=== PATIENT | male | born 1990 | race Native Hawaiian/Other Pacific Islander ===

== ENCOUNTER 2019-06-08 15:08 | Outpatient (CLI) | payer OTHER ==
--- NOTE | 2019-06-09 14:33 | XRAY Report ---
Reason: HYPERFLEXION INJURY MID MAY 2019 WHILE SKIING Procedure Date: 06/08/2019 Accession Number: [id number] / [id number] Procedure: XR - Knee 3 View RT CPT Code: Final Report FULL RESULT: EXAM: RIGHT KNEE RADIOGRAPHY EXAM DATE: 06/08/2019 03:23 PM. CLINICAL HISTORY: Hyperflexion injury mid may 2019 while skiing. COMPARISON: None. TECHNIQUE: 3 views. FINDINGS: Bones: No fracture or bone destructive process. Joints: No subluxation. Joint spaces are preserved. No joint effusion. Soft Tissues: No significant findings identified. IMPRESSION: 1. No bony or articular abnormality identified. RADIA
== END 2019-06-08 15:09 | disposition home or self-care (01) ==
LOC: DI 15:08
PROVIDERS: ATTEND Family Medicine
DX: S89.81XA Other specified injuries of right lower leg, initial encounter (principal)

== ENCOUNTER 2019-08-06 17:10 | Outpatient (CLI) | payer OTHER | END 2019-08-06 17:11 | disposition home or self-care (01) | LOC: COV 17:10 | PROVIDERS: ATTEND Family Medicine | DX: R05 Cough (principal) ==

== ENCOUNTER 2019-11-19 08:00 | Outpatient (CLI) | payer OTHER | END 2019-11-19 23:59 | disposition home or self-care (01) | LOC: LAB.R 08:00 | PROVIDERS: ATTEND Family Medicine | DX: Z20.828 Contact with and (suspected) exposure to other viral communicable diseases (principal); B97.89 Other viral agents as the cause of diseases classified elsewhere | CPT/HCPCS: 81599 ==

== ENCOUNTER 2021-07-09 14:03 | Emergency (ER) | payer OTHER ==
--- NOTE | 2021-07-09 14:25 | ED Physician Documentation ---
PD HPI MHE - Stated complaint Stated Complaint: ANXIETY - Chief complaint Chief Complaint: MHE - History obtained from History obtained from: Patient - Additional information Additional information: 30-year-old gentleman presents by private auto for evaluation of anxiety and depression with suicidal ideation. This is been going on for about a year but the last few weeks have been worse. He is seeing counselor which is helpful. He does have suicidal ideation with fleeting plans but does not think he would act on it. He is not on any medical management for depression or anxiety. No substance issues. He had a particularly bad panic attack today necessitating his visit. Review of Systems Ten Systems: 10 systems reviewed and negative Constitutional: denies: Fever, Chills Eyes: reports: Reviewed and negative Ears: reports: Reviewed and negative Nose: reports: Reviewed and negative Throat: reports: Reviewed and negative Cardiac: reports: Reviewed and negative Respiratory: reports: Reviewed and negative PD PAST MEDICAL HISTORY - Allergies Allergies/Adverse Reactions: Allergies Allergy/AdvReac Type Severity Reaction Status Date / Time No Known Drug Allergies Allergy Verified 07/09/21 14:13 PD ED PE NORMAL - Vitals Vital signs reviewed: Yes - General General: Alert and oriented X 3, Other (Slightly fast speech and anxious but overall normal affect and an excellent historian. Well-groomed.) - HEENT HEENT: PERRL, EOMI - Neck Neck: Supple, no meningeal sign, No bony TTP - Cardiac Cardiac: RRR, No murmur - Respiratory Respiratory: No respiratory distress, Clear bilaterally - Abdomen Abdomen: Normal bowel sounds, Soft, Non tender - Back Back: No CVA TTP, No spinal TTP - Derm Derm: Normal color, Warm and dry - Extremities Extremities: No edema, No calf tenderness / cord - Neuro Neuro: Alert and oriented X 3 Eye Opening: Spontaneous Motor: Obeys Commands Verbal: Oriented GCS Score: 15 Results - Vitals Vitals: Vital Signs - 24 hr 07/09/21 07/09/21 07/09/21 14:07 14:17 16:05 Temperature 36.3 C L 36.5 C Heart Rate 67 67 67 Respiratory 16 16 16 Rate Blood Pressure 136/70 H 136/70 H 126/84 H O2 Saturation 97 97 98 07/09/21 07/09/21 07/09/21 16:10 16:22 16:50 Temperature Heart Rate 62 77 75 Respiratory 16 20 18 Rate Blood Pressure 126/82 H 133/82 H 124/79 O2 Saturation 99 99 99 Oxygen O2 Source Room air PD MEDICAL DECISION MAKING - ED course ED course: 30-year-old gentleman with depression anxiety, seen by social work and contracts for safety, feeling much better after ketamine infusion with no persistent suicidal ideation or anxiety. Departure - Departure Disposition: Home, Self Care Clinical Impression: Depression, Anxiety Condition: Good Record reviewed to determine appropriate education?: Yes Instructions: ED Depression Comments: You were seen today for anxiety and depression, you have the resources from the social insurance analyst and use those tomorrow. You also received an infusion of ketamine, 30 mg over 40 minutes which seems to have been helpful. Return for new or worsening symptoms or if your depression or anxiety worsen.
[2021-07-09] MEDS ORDERED: KETAMINE 30 MG in SODIUM CHLORIDE 0.9% 100ML 100 ML IV STA (15:28)
[2021-07-09] MEDS ORDERED: MIDAZOLAM 2 MG/2 ML VIAL IVP STA (15:28)
[2021-07-09 17:05] VITALS: BP 133/70
== END 2021-07-09 17:05 | disposition home or self-care (01) ==
LOC: ED 14:03
DX: F32.A Depression, unspecified (principal); F41.9 Anxiety disorder, unspecified
CPT/HCPCS: 96365; 96375; 99283

== ENCOUNTER 2021-10-06 18:08 | Emergency (ER) | payer OTHER ==
[2021-10-06 18:37] LABS: MUDS CUTOFF CONCENTRATIONS CUTOFF CONC BELOW:
[2021-10-06 18:43] LABS: BILIRUBIN,URINE NEGATIVE (NEGATIVE); GLUCOSE, URINE (UA) NEGATIVE (NEGATIVE); KETONES,URINE (UA) NEGATIVE (NEGATIVE); LEUKOCYTE ESTERASE, URINE NEGATIVE (NEGATIVE); NITRITE,URINE NEGATIVE (NEGATIVE); OCCULT BLOOD,URINE NEGATIVE (NEGATIVE); PH,URINE 6.5 PH (5.0-7.5); PROTEIN,URINE NEGATIVE (NEGATIVE); UROBILINOGEN,URINE 0.2 (NORMAL) E.U./dL (NORMAL)
[2021-10-06 18:47] LABS: CLARITY,URINE CLEAR (CLEAR)
[2021-10-06 18:48] LABS: BASOPHILS # (AUTO) 0.1 10^3/uL (0.0-0.1); BASOPHILS % (AUTO) 0.7 %; EOSINOPHILS # (AUTO) 0.1 10^3/uL (0.0-0.7); EOSINOPHILS % (AUTO) 1.7 %; HCT - HEMATOCRIT 44.6 % (42.0-52.0); HGB - HEMOGLOBIN 15.3 g/dL (14.0-18.0); LYMPHOCYTES # (AUTO) 1.8 10^3/uL (1.5-3.5); LYMPHOCYTES % (AUTO) 21.6 %; MEAN CORPUSCULAR HEMOGLOBIN 29.8 pg (27.0-31.0); MEAN CORPUSCULAR HGB CONC 34.3 g/dL (32.0-36.0); MEAN CORPUSCULAR VOLUME 86.9 fL (80.0-94.0); MEAN PLATELET VOLUME 9.2 fL (7.4-11.4); MONOCYTES # (AUTO) 0.7 10^3/uL (0.0-1.0); MONOCYTES % (AUTO) 8.1 %; NEUTROPHILS # (AUTO) 5.6 10^3/uL (1.5-6.6); NEUTROPHILS % (AUTO) 67.8 %; PLT - PLATELET COUNT 271 10^3/uL (130-450); RED BLOOD COUNT 5.13 10^6/uL (4.70-6.10); RED CELL DISTRIBUTION WIDTH 12.7 % (12.0-15.0); WHITE BLOOD COUNT 8.3 x10^3/uL (4.8-10.8)
[2021-10-06 18:59] LABS: AMPHETAMINE SCREEN,URINE NEGATIVE (NEGATIVE); BARBITURATE SCREEN,UR NEGATIVE (NEGATIVE); BENZODIAZEPINES SCREEN, URINE NEGATIVE (NEGATIVE); COCAINE SCREEN URINE NEGATIVE (NEGATIVE); METHADONE SCREEN, URINE NEGATIVE (NEGATIVE); METHAMPHETAMINES SCREEN, URINE NEGATIVE (NEGATIVE); OPIATE SCREEN, URINE NEGATIVE (NEGATIVE); OXYCODONE SCREEN, URINE NEGATIVE (NEGATIVE); THC CANNABINOID SCREEN, URINE NEGATIVE (NEGATIVE); TRICYCLIC ANTIDEPRESSANT,URINE NEGATIVE (NEGATIVE)
[2021-10-06 19:00] LABS: PROPOXYPHENE SCREEN, URINE NEGATIVE (NEGATIVE)
--- NOTE | 2021-10-06 19:04 | ED Physician Documentation ---
PD HPI MHE - Stated complaint Stated Complaint: ANXIETY - Chief complaint Chief Complaint: MHE - History obtained from History obtained from: Patient - History of Present Illness Primary symptom: Self harm - cut, Anxiety Pain level max: 0 Pain level now: 0 - Additional information Additional information: Patient is a 31-year-old male who brought himself to the emergency department for increasing anxiety and feeling "out of control". He states he cut himself on the thigh today. He states he is not suicidal or homicidal. He states that he would like to be hospitalized for psychiatric care. He used to have a therapist but states it was not helping so stopped going several months ago. He states increasing stress at home. He is requesting voluntary placement Review of Systems Ten Systems: 10 systems reviewed and negative Constitutional: denies: Fever, Chills Ears: denies: Ear pain Nose: denies: Rhinorrhea / runny nose, Congestion Respiratory: denies: Cough GI: denies: Abdominal Pain, Nausea, Vomiting, Diarrhea Skin: denies: Rash Musculoskeletal: denies: Neck pain, Back pain Neurologic: denies: Headache PD PAST MEDICAL HISTORY - Past Medical History Past Medical History: No - Past Surgical History Past Surgical History: No - Present Medications Home Medications: Ambulatory Orders Medication Instructions Recorded Confirmed Colchicine 0.6 mg PO DAILY PRN 10/06/21 10/06/21 Sertraline [Zoloft] 100 mg PO DAILY 10/06/21 10/06/21 - Allergies Allergies/Adverse Reactions: Allergies Allergy/AdvReac Type Severity Reaction Status Date / Time No Known Drug Allergies Allergy Verified 10/06/21 18:22 - Living Situation Living Arrangement: reports: At home - Social History Does the pt have substance abuse?: No - Family History Family history: reports: Non contributory PD ED PE NORMAL - Vitals Vital signs reviewed: Yes - General General: Alert and oriented X 3, No acute distress, Well developed/nourished - HEENT HEENT: PERRL, Moist mucous membranes - Neck Neck: Supple, no meningeal sign - Cardiac Cardiac: RRR, Strong equal pulses - Respiratory Respiratory: No respiratory distress, Clear bilaterally - Abdomen Abdomen: Soft, Non tender, Non distended - Derm Derm: Warm and dry - Extremities Extremities: No edema, Other (Superficial abrasion to the right thigh) - Neuro Neuro: Alert and oriented X 3 - Psych Psych: Normal mood, Normal affect Results - Vitals Vitals: Vital Signs - 24 hr 10/06/21 10/06/21 18:16 18:22 Temperature 36.5 C 36.5 C Heart Rate 73 73 Respiratory 18 18 Rate Blood Pressure 149/100 H 149/100 H O2 Saturation 99 99 Oxygen O2 Source Room air - Labs Labs: Laboratory Tests 10/06/21 10/06/21 10/06/21 18:30 18:33 18:42 WBC 8.3 RBC 5.13 Hgb 15.3 Hct 44.6 MCV 86.9 MCH 29.8 MCHC 34.3 RDW 12.7 Plt Count 271 MPV 9.2 Neut # (Auto) 5.6 Lymph # (Auto) 1.8 Mccormick # (Auto) 0.7 Eos # (Auto) 0.1 Baso # (Auto) 0.1 Absolute Nucleated RBC 0.00 Nucleated RBC % 0.0 Sodium Potassium Chloride Carbon Dioxide Anion Gap BUN Creatinine Estimated GFR (MDRD) Glucose Calcium Total Bilirubin AST ALT Alkaline Phosphatase Total Protein Albumin Globulin Albumin/Globulin Ratio Lipase TSH Urine Color YELLOW Urine Clarity CLEAR Urine pH 6.5 Ur Specific [place] <=1.005 Urine Protein NEGATIVE Urine Glucose (UA) NEGATIVE Urine Ketones NEGATIVE Urine Occult Blood NEGATIVE Urine Nitrite NEGATIVE Urine Bilirubin NEGATIVE Urine Urobilinogen 0.2 (NORMAL) Ur Leukocyte Esterase NEGATIVE Ur Microscopic Review NOT INDICATED Urine Culture Comments NOT INDICATED Salicylates Urine Opiates Screen NEGATIVE Ur Oxycodone Screen NEGATIVE Urine Methadone Screen NEGATIVE Ur Propoxyphene Screen NEGATIVE Acetaminophen Ur Barbiturates Screen NEGATIVE Ur Tricyclics Screen NEGATIVE Ur Phencyclidine Scrn NEGATIVE Ur Amphetamine Screen NEGATIVE U Methamphetamines Scrn NEGATIVE U Benzodiazepines Scrn NEGATIVE Urine Cocaine Screen NEGATIVE U Cannabinoids Screen NEGATIVE Ethyl Alcohol SARS-CoV-2 (PCR) NOT DETECTED 10/06/21 10/06/21 18:42 18:42 WBC RBC Hgb Hct MCV MCH MCHC RDW Plt Count MPV Neut # (Auto) Lymph # (Auto) Mccormick # (Auto) Eos # (Auto) Baso # (Auto) Absolute Nucleated RBC Nucleated RBC % Sodium 139 Potassium 3.9 Chloride 103 Carbon Dioxide 27 Anion Gap 9.0 BUN 11 Creatinine 0.9 Estimated GFR (MDRD) 100 Glucose 81 Calcium 9.7 Total Bilirubin 0.6 AST 42 ALT 24 Alkaline Phosphatase 53 Total Protein 7.9 Albumin 4.9 Globulin 3.0 Albumin/Globulin Ratio 1.6 Lipase 83 H TSH 0.49 Urine Color Urine Clarity Urine pH Ur Specific [place] Urine Protein Urine Glucose (UA) Urine Ketones Urine Occult Blood Urine Nitrite Urine Bilirubin Urine Urobilinogen Ur Leukocyte Esterase Ur Microscopic Review Urine Culture Comments Salicylates < 6.0 Urine Opiates Screen Ur Oxycodone Screen Urine Methadone Screen Ur Propoxyphene Screen Acetaminophen < 10 L Ur Barbiturates Screen Ur Tricyclics Screen Ur Phencyclidine Scrn Ur Amphetamine Screen U Methamphetamines Scrn U Benzodiazepines Scrn Urine Cocaine Screen U Cannabinoids Screen Ethyl Alcohol < 5.0 SARS-CoV-2 (PCR) PD MEDICAL DECISION MAKING - ED course Complexity details: reviewed results, re-evaluated patient, considered differential, d/w patient, d/w family, d/w admissions consultant ED course: 31-year-old male here seeking voluntary psychiatric care. Telepsychiatry was consulted, Dr. Ware. Recommends voluntary care. Also recommend Zoloft 150 mg p.o. daily along with hydroxyzine 50 mg p.o. 3 times daily as needed.Patient signed out [facility] emergency department physician for ongoing care. Departure - Departure Clinical Impression: Anxiety MDD (major depressive disorder) Qualifiers: Major depression recurrence: unspecified whether recurrent Active/Remission status: currently active Major depression episode severity: unspecified Qualified Code(s): F32.9 - Major depressive disorder, single episode, unspecified Condition: Stable
[2021-10-06 19:08] LABS: ACETAMINOPHEN < 10 ug/mL (10-30); ALBUMIN 4.9 g/dL (3.2-5.5); ALBUMIN/GLOBULIN RATIO 1.6 (1.0-2.2); ALKALINE PHOSPHATASE 53 IU/L (42-121); ALT ALANINE AMINOTRANSFERASE 24 IU/L (10-60); AST ASPARTATE AMINOTRANSFERASE 42 IU/L (10-42); BILIRUBIN,TOTAL 0.6 mg/dL (0.2-1.0); BUN - BLOOD UREA NITROGEN 11 mg/dL (6-20); CALCIUM 9.7 mg/dL (8.5-10.3); CARBON DIOXIDE - CO2 27 mmol/L (21-32); CHLORIDE 103 mmol/L (101-111); CREATININE 0.9 mg/dL (0.6-1.2); ETOH - ETHANOL < 5.0 mg/dL; GFR - MDRD 100 (>89); GLUCOSE 81 mg/dL (70-100); LIPASE 83 U/L (22-51); POTASSIUM 3.9 mmol/L (3.5-5.0); SALICYLATE < 6.0 mg/dL; SODIUM 139 mmol/L (135-145); TOTAL PROTEIN 7.9 g/dL (6.7-8.2)
--- NOTE | 2021-10-06 21:05 | TELEPSYCH PHYS NOTE ---
Telepsych Consultation Note Consult: Name: Warren GambinoOB: 1990 DateandTime: 10/06/2021 11:22:33 PM Location of the patient: [facility] EDLocation of the doctor: [place] Length of consult: 45 min This evaluation was conducted via video telepsychiatry with the assistance of onsite staff Reason for consult: anxiety, outbursts Requested by: Dr. Carlos History of Present Illness: The patient is a 31-year-old male with a history of depression and anxiety who presented to the ER after cutting his thigh due to anxiety. The patient reports that he has history of depression and is prescribed Zoloft hundred milligrams daily but he intermittently takes extra doses to manage his anxiety and depression. The patient denies SI but states that when frustrated overwhelmed, he will cut himself or punch fernández. The patient is afraid that he will escalate and do serious damage to himself. He is only slept for a few hours in the past couple days and feels that he is "[id number]." The patient is requesting inpatient psychiatric care. The psychiatrist recommended increasing the dose of Zoloft and adding Hydroxyzine as a PRN for anxiety. The fianc was happy to hear the Hydroxyzine recommendation and she takes the same medication for anxiety and told the patient how it helps her. The patient and jeronimo are agreeable with the medication recommendations and agree with the psychiatrist that inpatient psychiatric care is appropriate. Collateral Contacted: The patient's fianc was present for the interview Sleep issues?: YesSleep Quantity:6hr total in the past 2 daysSleep Quality: Poor Psychiatric History/Treatment History: Past diagnoses: depression, anxiety Hospitalizations: No Current Treatment:YesMedication management:YesMedications:Therapy:No Suicide Assessment: PSS-3: 1) Over the past 2 weeks have you felt down, depressed or hopeless?Yes 2) Over the past 2 weeks have you had thoughts of killing yourself?No 3) Have you ever in your life attempted to kill yourself?No Within the past 6 months? [employer]-based Safety Assessment: Risk Factors Stressors: See HPI Attempts/Self-injury: YesDescription:no prior suicide attempts, hx of cutting- last episode today Impulsivity:YesDescription: Drug/Alcohol History:YesDescription:Alcohol-drinks a few times a year Trauma History:No Access to firearms:No HI/Violence/Property destruction:YesDescription:"my own property but not people" Legal: No Family Psych History:YesDescription:mother-depression, anxiety. grandfather- depression, cocaine use Family History of suicide:No Protective Factors: Can handle stress well?Yes Synagogue?No External: Social supports/ Therapeutic relationships: YesDescription: Relationship history: enagaged Living situation: lives with cristobal Employment: YesDescription:training professional for [employer] Education: HS grad, some college Responsibility to family/children/work: YesDescription: Future orientation:YesDescription: Health History: Medical History: Gout Medications & Freq: Zoloft 100mg daily, Colchicine 0.6 mg daily prn Allergies: NKDA, Mental Status Exam: Appearance and Attire:Good eye contact Psychomotor agitation:No abnormality Attitude and behavior:Cooperative Speech:No abnormality, Mood:Anxious Affect:Constricted Thought process:Logical Thought content:no SI, no HI, no delusions Perception:no AVH Intel:Average Abstract:Appropriate Language:No abnormality Orientation:Oriented x 4 Sense:Normal Knowledge:Appropriate for education and socioeconomic status Memory:Intact Insight:Appropriate Judgement:Moderate impairment Gait:No abnormality Impression/Risk Assessment: Current Suicide Risk Elevated?Yes Current Violence Risk Elevated?No Issues with ability to care for self?No Summary: The patient is a 31-year-old male with history of depression and a nxiety who presents to the ER with overwhelming anxiety and episodes of self harm. Patient is not feel safe to go home and is requesting inpatient psychiatric care. The patient and fiabimael are both requesting inpatient treatment for stabilization. Inpatient psychiatric care is appropriate. Diagnosis: MDD, recurrent Moderate, Unspecified Anxiety Disorder CPT Codes: 60149 - Psychiatric Diagnostic Evaluation with Medical Services Treatment Plan: Level of Care: voluntary admission Psychiatric Clearance: No Observation level 1:1 needed?: Yes Pharmacological: Start Zoloft 150 mg daily and Hydroxyzine 50 mg PO TID prn anxiety Patient psychotic?No Therapy: Supportive Follow up needed while in the hospital?: YesNumber of times:Follow-up in 1- 2 days Discussed plan with onsite team leader: Yes Who Dr. Terrance Ware MD [facility] List names and roles of persons who participated in consult: Christiano Ware MD. [facility]
[2021-10-07 07:11] VITALS: BP 114/80
[2021-10-07] MEDS ORDERED: SERTRALINE 50 MG TABLET PO SCH ×2 (08:04→08:15)
[2021-10-07] MEDS ORDERED: KETAMINE 25 MG in SODIUM CHLORIDE 0.9% 100ML 100 ML IV STA (11:54)
--- NOTE | 2021-10-07 14:19 | ED Physician Documentation ---
ED Addendum - Addendum Addendum: 10/07/21 14:15 Patient stayed in the emergency department overnight. There are no beds available for voluntary psychiatric patients currently. Social work was consulted and evaluated the patient as well. The patient was given a dose of IV ketamine by Dr. Us. The patient is currently feeling better and request to go home at this time. He created a safety plan with social work. He will return if he worsens. This document was made in part using voice recognition software. While efforts are made to proofread this document, sound alike and grammatical errors may occur. Departure - Departure Disposition: Home, Self Care Clinical Impression: Anxiety Condition: Good Instructions: Anxiety Disorder Follow-Up: Inna Kerns ARNP [Primary Care Provider] - Within 3 Days Comments: Continue your Zoloft at home. Please follow-up with your doctor for further care. Return if you worsen. Crisis Line and is available to talk to someone Follow-up as directed by social work today.
== END 2021-10-07 15:04 | disposition home or self-care (01) ==
LOC: ED 18:08
DX: S71.119A Laceration without foreign body, unspecified thigh, initial encounter (principal); W45.8XXA Other foreign body or object entering through skin, initial encounter; F32.9 Major depressive disorder, single episode, unspecified; Z20.822 Contact with and (suspected) exposure to COVID-19
CPT/HCPCS: 36415; 80053; 80306; 80307; 80320; 80329; 81003; 83690; 84443; 85025; 87635; 96365; 99284; G0425; Q3014; 81001; 87086

== ENCOUNTER 2022-12-14 16:39 | Emergency (ER) | payer OTHER ==
[2022-12-14 17:05] LABS: BASOPHILS # (AUTO) 0.1 10^3/uL (0.0-0.1); BASOPHILS % (AUTO) 0.6 %; EOSINOPHILS # (AUTO) 0.2 10^3/uL (0.0-0.7); EOSINOPHILS % (AUTO) 1.7 %; HCT - HEMATOCRIT 43.9 % (42.0-52.0); HGB - HEMOGLOBIN 14.9 g/dL (14.0-18.0); LYMPHOCYTES # (AUTO) 1.4 10^3/uL (1.5-3.5); LYMPHOCYTES % (AUTO) 12.4 %; MEAN CORPUSCULAR HGB CONC 33.9 g/dL (32.0-36.0); MEAN CORPUSCULAR VOLUME 85.6 fL (80.0-94.0); MONOCYTES # (AUTO) 0.9 10^3/uL (0.0-1.0); MONOCYTES % (AUTO) 7.9 %; NEUTROPHILS # (AUTO) 8.7 10^3/uL (1.5-6.6); NEUTROPHILS % (AUTO) 77.1 %; PLT - PLATELET COUNT 247 10^3/uL (130-450); RED BLOOD COUNT 5.13 10^6/uL (4.70-6.10); RED CELL DISTRIBUTION WIDTH 12.7 % (12.0-15.0); WHITE BLOOD COUNT 11.3 x10^3/uL (4.8-10.8)
[2022-12-14 17:07] LABS: BILIRUBIN,URINE NEGATIVE (NEGATIVE); GLUCOSE, URINE (UA) NEGATIVE (NEGATIVE); KETONES,URINE (UA) NEGATIVE (NEGATIVE); LEUKOCYTE ESTERASE, URINE NEGATIVE (NEGATIVE); NITRITE,URINE NEGATIVE (NEGATIVE); OCCULT BLOOD,URINE TRACE-INTA (NEGATIVE); PROTEIN,URINE NEGATIVE (NEGATIVE); UROBILINOGEN,URINE 0.2 (NORMAL) E.U./dL (NORMAL)
[2022-12-14 17:08] LABS: CLARITY,URINE CLEAR (CLEAR)
[2022-12-14 17:18] LABS: ALBUMIN 4.7 g/dL (3.2-5.5); ALBUMIN/GLOBULIN RATIO 1.5 (1.0-2.2); BILIRUBIN,TOTAL 0.5 mg/dL (0.2-1.0); CALCIUM 9.9 mg/dL (8.5-10.3); POTASSIUM 3.7 mmol/L (3.5-4.5); TOTAL PROTEIN 7.9 g/dL (6.4-8.9)
[2022-12-14 17:49] LABS: RAPID STREP SCREEN Negative (Negative)
--- NOTE | 2022-12-14 18:23 | ED Physician Documentation ---
PD HPI URI - Stated complaint Stated Complaint: FEVER, BODY ACHES - Chief complaint Chief Complaint: Fever - History obtained from History obtained from: Patient - Additional information Additional information: 32-year-old male with no significant past medical history presents for fever and body aches for 1 day. Has taken Tylenol and Motrin at home with some relief of symptoms. Reported back and "kidney" pain. Also endorsing sore throat. Review of Systems Constitutional: reports: Fever, Chills Ears: denies: Loss of hearing, Ear pain, Drainage/discharge Throat: reports: Sore throat. denies: Dental pain / toothache, Oral lesions / sores Skin: denies: Rash, Lesions, Abrasion (s) Musculoskeletal: reports: Back pain. denies: Neck pain, Joint pain, Extremity swelling Neurologic: denies: Generalized weakness, Focal weakness, Syncope PD PAST MEDICAL HISTORY - Past Surgical History Past Surgical History: No - Present Medications Home Medications: Ambulatory Orders Medication Instructions Recorded Confirmed Colchicine 0.6 mg PO DAILY PRN 10/06/21 12/14/22 - Allergies Allergies/Adverse Reactions: Allergies Allergy/AdvReac Type Severity Reaction Status Date / Time No Known Drug Allergies Allergy Verified 10/06/21 18:22 - Social History Does the pt have substance abuse?: No PD ED PE NORMAL - Vitals Vital signs reviewed: Yes - General General: Alert and oriented X 3, No acute distress, Well developed/nourished - HEENT HEENT: Atraumatic, PERRL, EOMI, Other (pharyngeal erythema without edema or exudate) - Neck Neck: Supple, no meningeal sign - Cardiac Cardiac: RRR, Strong equal pulses - Respiratory Respiratory: No respiratory distress, Clear bilaterally - Abdomen Abdomen: Soft, Non tender, Non distended - Back Back: No CVA TTP, No spinal TTP - Derm Derm: Normal color, Warm and dry, No rash - Extremities Extremities: No deformity, No tenderness to palpate, Normal ROM s pain - Neuro Neuro: Alert and oriented X 3, funeral home attendant 2-12 intact, No motor deficit, Normal speech - Psych Psych: Normal mood, Normal affect Results - Vitals Vitals: Oxygen O2 Source Room air - Labs Labs: Microbiology 12/14/22 17:28 Group A Strep Throat Culture - Preliminary Throat CULTURE IN PROGRESS. RESULTS TO FOLLOW. Laboratory Tests 12/14/22 12/14/22 12/14/22 16:59 16:59 17:00 WBC 11.3 H RBC 5.13 Hgb 14.9 Hct 43.9 MCV 85.6 MCH 29.0 MCHC 33.9 RDW 12.7 Plt Count 247 MPV 9.0 Neut # (Auto) 8.7 H Lymph # (Auto) 1.4 L Sullivan # (Auto) 0.9 Eos # (Auto) 0.2 Baso # (Auto) 0.1 Absolute Nucleated RBC 0.00 Nucleated RBC % 0.0 Sodium 137 Potassium 3.7 Chloride 103 Carbon Dioxide 28 Anion Gap 6.0 BUN 12 Creatinine 1.0 Estimated GFR (MDRD) 88 L Glucose 88 Calcium 9.9 Total Bilirubin 0.5 AST 14 ALT 16 Alkaline Phosphatase 58 Total Protein 7.9 Albumin 4.7 Globulin 3.2 Albumin/Globulin Ratio 1.5 Lipase 18 Urine Color YELLOW Urine Clarity CLEAR Urine pH 6.0 Ur Specific [place] 1.010 Urine Protein NEGATIVE Urine Glucose (UA) NEGATIVE Urine Ketones NEGATIVE Urine Occult Blood TRACE-INTA Urine Nitrite NEGATIVE Urine Bilirubin NEGATIVE Urine Urobilinogen 0.2 (NORMAL) Ur Leukocyte Esterase NEGATIVE Ur Microscopic Review NOT INDICATED Urine Culture Comments NOT INDICATED Influenza A (Rapid) Influenza B (Rapid) Group A Strep Rapid 12/14/22 12/14/22 17:28 17:28 WBC RBC Hgb Hct MCV MCH MCHC RDW Plt Count MPV Neut # (Auto) Lymph # (Auto) Sullivan # (Auto) Eos # (Auto) Baso # (Auto) Absolute Nucleated RBC Nucleated RBC % Sodium Potassium Chloride Carbon Dioxide Anion Gap BUN Creatinine Estimated GFR (MDRD) Glucose Calcium Total Bilirubin AST ALT Alkaline Phosphatase Total Protein Albumin Globulin Albumin/Globulin Ratio Lipase Urine Color Urine Clarity Urine pH Ur Specific [place] Urine Protein Urine Glucose (UA) Urine Ketones Urine Occult Blood Urine Nitrite Urine Bilirubin Urine Urobilinogen Ur Leukocyte Esterase Ur Microscopic Review Urine Culture Comments Influenza A (Rapid) Negative Influenza B (Rapid) Negative Group A Strep Rapid Negative PD Medical Decision Making - ED course Complexity details: reviewed results, re-evaluated patient, considered differential, d/w patient, d/w family ED course: Fever and body aches, concerning for viral syndrome. Laboratory work ordered in triage reviewed, unremarkable. Strep and flu swabs negative. Patient counseled on the fact that this is likely viral, supportive measures including Tylenol, Motrin, IV fluids, rest advised with patient. Departure - Departure Disposition: Home, Self Care Clinical Impression: Nonspecific syndrome suggestive of viral illness Condition: Stable Instructions: ED Fever Control, ED Viral Syndrome Forms: PCP List Discharge Date/Time: 12/14/22 18:24
[2022-12-14 18:31] VITALS: BP 128/76
== END 2022-12-14 18:24 | disposition home or self-care (01) ==
LOC: ED 16:39 → SUPCPDRO 16:39 → ED 18:24
DX: R50.9 Fever, unspecified (principal); M79.10 Myalgia, unspecified site; J02.9 Acute pharyngitis, unspecified; M54.9 Dorsalgia, unspecified
CPT/HCPCS: 36415; 80053; 81001; 81003; 83690; 85025; 87070; 87086; 87275; 87276; 87430; 99283

== ENCOUNTER 2023-01-12 22:35 | Outpatient (CLI) | payer OTHER | END 2023-01-12 23:59 | disposition critical access hospital (66) | LOC: EMS 22:35 | DX: S01.81XA Laceration without foreign body of other part of head, initial encounter (principal); R42 Dizziness and giddiness; W10.8XXA Fall (on) (from) other stairs and steps, initial encounter; Y92.009 Unspecified place in unspecified non-institutional (private) residence as the place of occurrence of the external cause | CPT/HCPCS: A0425; A0429 ==

== ENCOUNTER 2023-01-12 22:52 | Emergency (ER) | payer OTHER ==
--- OUTSIDE RECORDS SUMMARY | 2023-01-12 23:18 | EXTERNAL MEDICAL SUMMARY RPT | Continuity of Care Document ---
Author Name Unknown Address [address] [place] [address] Phone Organization [facility] Address [address] [place] [address] Phone Care Team Providers Care Transcription Typist Name Role Phone Hipolito Stack Unavailable Unavailable Allergies and Intolerances date description facility reaction severity (no date) No Known Drug Allergies [facility] (no germán ction) (no severity) Problems date description facility 2022-12-15 00:00 Upper respiratory tract infecti on [facility] 2022-12-15 00:[address] [facility] Results/Labs test date facility value unit notes Social History date description facility 2022-12-15 00:00 Never smoked tobacco (finding) [facility] Vital Signs date measurement value units 2022-12-15 00:00 BMI 23.6 kg/m2 2022-12-15 00:00 BP_diastolic 65 mmHg 2022-12-15 00:00 BP_systolic 132 mmHg 2022-12-15 00:00 heart_rate 99 /min 2022-12-15 00:00 height_metric 177.8 cm 2022-12-15 00:00 height_standard 70 in 2022-12-15 00:00 o2_saturation 97 % 2022-12-15 00:00 respiration_rate 18 /min 2022-12-15 00:00 temperature_metric 36.56 C 2022-12-15 00:00 temperature_standard 97.8 F 2022-12-15 00:00 weight_metric 74.84 kg 2022-12-15 00:00 weight_standard 164.99 lb
--- NOTE | 2023-01-12 23:24 | ED Physician Documentation ---
PD HPI HEAD INJURY - Stated complaint Stated Complaint: FELL, HIT HEAD, FOREHEAD LAC - Chief complaint Chief Complaint: Trauma Hd/Nk - History obtained from History obtained from: Patient - Additional information Additional information: Patient tripped and fell forward at home tonight at approximately 10 PM, struck his face and forehead against his garage door. Patient says he does not know if he lost consciousness, but he says his told him that he had LOC for up to 1 minute. Patient's called 911, patient is brought in by EMS. Patient's chief complaint/concern is forehead laceration. He also notes mild frontal headache, mild posterior neck pain at the base of his neck. Denies ksenia sea/vomiting. He does not take any blood-thinning medications. Review of Systems Eyes: denies: Loss of vision, Decreased vision Skin: reports: Abrasion (s), Laceration (s) Musculoskeletal: reports: Neck pain. denies: Back pain, Extremity pain, Joint pain, Extremity swelling, Joint swelling, Pain with weight bearing Neurologic: reports: Headache, Head injury, LOC. denies: Generalized weakness, Focal weakness, Numbness PD PAST MEDICAL HISTORY - Past Medical History Past Medical History: Yes Other Past Medical History: gout - Past Surgical History Past Surgical History: No General: Appendectomy Ortho: ACL reconstruction - Present Medications Home Medications: Ambulatory Orders Medication Instructions Recorded Confirmed No Known Home Medications 01/12/23 01/12/23 - Allergies Allergies/Adverse Reactions: Allergies Allergy/AdvReac Type Severity Reaction Status Date / Time No Known Drug Allergies Allergy Verified 01/12/23 22:58 - Social History Does the pt smoke?: No Smoking Status: Former smoker Does the pt have substance abuse?: No - Immunizations Immunizations are current?: No Immunizations: TDAP >10years/unknown PD ED PE NORMAL - Vitals Vital signs reviewed: Yes - General General: Alert and oriented X 3, No acute distress, Well developed/nourished - HEENT HEENT: PERRL, EOMI - Neck Neck: No bony TTP - Cardiac Cardiac: RRR, No murmur - Respiratory Respiratory: No respiratory distress, Clear bilaterally - Neuro Neuro: Alert and oriented X 3, rn vascular 2-12 intact, No motor deficit, No sensory deficit, Normal speech Eye Opening: Spontaneous Motor: Obeys Commands Verbal: Oriented GCS Score: 15 PD ED PE EXPANDED - HEENT HEENT Visual: 1 - laceration (3.5 cm length) 2 - bruising, abrasion, tenderness Results - Vitals Vitals: Vital Signs - 24 hr 01/13/23 03:04 Heart Rate 53 L Respiratory 16 Rate Blood Pressure 116/74 O2 Saturation 99 Oxygen O2 Source Room air - Rads (name of study) CTH Relevant Findings:: Prelim report reviewed, See rad report CT cervical spine Relevant Findings:: Prelim report reviewed, See rad report Procedures - Laceration (location) Face Length in cm: 2 (total length of forehead laceration is 3.5 cm as noted in PE, but only 2cm requires repair (1.5cm of lac is superficial)) Wound type: Linear PD Medical Decision Making - ED course Complexity details: reviewed results, re-evaluated patient, considered differential, d/w patient ED course: Patient is not in a cervical collar when I am first evaluating him. In review of systems, he mentions that he is having some neck pain as noted in my HPI. Thus, a cervical collar is placed, and a CT cervical spine will be ordered in addition to the CT head (CT head is being ordered due to head injury combined with reported LOC that was nearly 1 minute in duration). No concerning findings on CTH, CT cervical spine. Forehead laceration repaired as noted above in procedure note. Results d/w patient, return precautions reviewed. Departure - Departure Disposition: 01 Home, Self Care Clinical Impression: Forehead laceration Qualifiers: Encounter type: initial encounter Qualified Code(s): S01.81XA - Laceration without foreign body of other part of head, initial encounter Condition: Good Instructions: ED Laceration Facial Sutr Tape Follow-Up: Inna Kerns ARNP [Primary Care Provider] - Comments: There were no concerning findings/abnormalities on the CT scans of your head and neck. Your forehead laceration was stitched closed using a "running stitch"; an equivalent of 6 single stitches were used. This information is for your primary care provider when they remove the sutures. Contact your primary care provider when the office is next open (presumably tomorrow, Saturday, January 14) to arrange for an appointment for stitch removal. The stitches should be removed in 1 week. If your primary care provider does not have Saturday hours, you can arrange for an appointment for next Saturday (01/21/23). Forms: PCP List Discharge Date/Time: 01/13/23 04:06
--- NOTE | 2023-01-13 01:58 | CT Report ---
PROCEDURE: HEAD WO INDICATIONS: fall, head injury TECHNIQUE: Noncontrast 4.5 mm thick angled axial sections acquired from the foramen magnum to the vertex. For r adiation dose reduction, the following was used: automated exposure control, adjustment of mA and/or kV according to patient size. COMPARISON: None. FINDINGS: Image quality: Excellent. CSF spaces: Basal cisterns are patent. No extra-axial fluid collections. Ventricles are normal in size and shape. Brain: No midline shift. No intracranial masses or hemorrhage. Cottrell-white matter interface is norm al. Skull and face: Frontal scalp soft tissue swelling and hematoma is seen. Calvarium and visualized fa cial bones are intact, without suspicious lesions. Sinuses: Visualized sinuses and mastoids are clear. IMPRESSION: No acute intracranial pathology. Frontal scalp swelling and hematoma. No gross acute skull fracture. Reviewed by: Edward Reilly MD on 01/13/2023 1:57 AM PDT Approved by: Edward Reilly MD on 01/13/2023 1:57 AM PDT Station ID: [id number]
--- NOTE | 2023-01-13 01:59 | CT Report ---
PROCEDURE: CERVICAL SPINE WO INDICATIONS: fall, head injury TECHNIQUE: Noncontrast 3 mm thick sections acquired from the skull base to the T4 level. Sagittal and coronal r eformats were then constructed. For radiation dose reduction, the following was used: automated exp osure control, adjustment of mA and/or kV according to patient size. COMPARISON: None. FINDINGS: Image quality: Excellent. Bones: No fractures or dislocations. Visualized superior ribs are intact. Soft tissues: Prevertebral soft tissues are normal in thickness. No paravertebral hematomas. No ap ical pneumothoraces. IMPRESSION: No acute, displaced fracture or traumatic subluxation. Reviewed by: Edward Franco MD on 01/13/2023 1:58 AM PDT Approved by: Edward Franco MD on 01/13/2023 1:58 AM PDT Station ID: [id number]
[2023-01-13] MEDS ORDERED: LIDOCAINE 1% 2 ML VIAL SUBQ STA (02:09)
[2023-01-13 03:12] VITALS: BP 116/74; O2SAT 99
[2023-01-13] MEDS ORDERED: BACITRACIN ZINC OINT 1 PACKET TOP STA (03:52)
== END 2023-01-13 04:06 | disposition home or self-care (01) ==
LOC: EDUNIT# → ED 22:52
DX: S01.81XA Laceration without foreign body of other part of head, initial encounter (principal); W19.XXXA Unspecified fall, initial encounter; Y92.008 Other place in unspecified non-institutional (private) residence as the place of occurrence of the external cause; Z87.891 Personal history of nicotine dependence
CPT/HCPCS: 12011; 70450; 72125; 99283; 99284; A9270

== ENCOUNTER 2023-06-21 11:58 | Outpatient (CLI) | payer OTHER ==
[2023-06-21 12:29] LABS: HCT - HEMATOCRIT 44.9 % (42.0-52.0); HGB - HEMOGLOBIN 15.2 g/dL (14.0-18.0); MEAN CORPUSCULAR HGB CONC 33.9 g/dL (32.0-36.0); MEAN CORPUSCULAR VOLUME 85.7 fL (80.0-94.0); MEAN PLATELET VOLUME 9.6 fL (7.4-11.4); RED BLOOD COUNT 5.24 10^6/uL (4.70-6.10); RED CELL DISTRIBUTION WIDTH 12.6 % (12.0-15.0)
[2023-06-21 12:50] LABS: CALCIUM 9.9 mg/dL (8.5-10.3); POTASSIUM 4.1 mmol/L (3.5-4.5)
[2023-06-21 12:53] LABS: THYROID STIMULATING HORMONE 0.72 uIU/mL (0.34-5.60)
[2023-06-21 12:57] LABS: FERRITIN 73.5 ng/mL (23.9-336.2)
== END 2023-06-21 11:59 | disposition home or self-care (01) ==
LOC: LAB 11:58
PROVIDERS: ATTEND Family Medicine
DX: R42 Dizziness and giddiness (principal)
CPT/HCPCS: 36415; 80048; 82728; 84443; 85027

== ENCOUNTER 2023-08-13 16:19 | Outpatient (CLI) | payer OTHER | END 2023-08-13 16:20 | disposition home or self-care (01) | LOC: LAB 16:19 | PROVIDERS: ATTEND Family Medicine | DX: Z87.39 Personal history of other diseases of the musculoskeletal system and connective tissue (principal) | CPT/HCPCS: 36415; 84550 ==

== ENCOUNTER 2023-08-26 13:10 | Emergency (ER) | payer OTHER ==
[2023-08-26 15:42] LABS: B. PARAPERTUSSIS- RESP PCR PAN NOT DETECTED; B. PERTUSSIS- RESP PCR PANEL NOT DETECTED; C. PNEUMONIAE- RESP PCR PANEL NOT DETECTED; CORONAVIRUS 229E-RESP PCR NOT DETECTED; CORONAVIRUS HKU1-RESP PCR NOT DETECTED; CORONAVIRUS NL63-RESP PCR NOT DETECTED; CORONAVIRUS OC43-RESP PCR NOT DETECTED; HUMAN METAPNEUMOVIRUS NOT DETECTED; INFLUENZA A- RESP PCR PANEL NOT DETECTED; INFLUENZA B - RESP PCR PANEL NOT DETECTED; M. PNEUMONIAE- RESP PCR PANEL NOT DETECTED; PARAINFLUENZA VIRUS 1 NOT DETECTED; PARAINFLUENZA VIRUS 2 NOT DETECTED; PARAINFLUENZA VIRUS 3 NOT DETECTED; PARAINFLUENZA VIRUS 4 NOT DETECTED; RHINOVIRUS/ENTEROVIRUS NOT DETECTED; RSV- RESP PCR PANEL NOT DETECTED; SARS-CoV-2 -RESP PCR PANEL NOT DETECTED
--- NOTE | 2023-08-26 15:55 | ED Physician Documentation ---
History of Present Illness - Stated complaint Stated Complaint: FEVER/FATIGUE AFTER TICK BITE - Chief complaint Chief Complaint: General - History obtained from History obtained from: Patient - Additonal information Additional information: Patient is a 33-year-old male presenting for evaluation of bodyaches starting today. Patient is concerned as he found a tick on him yesterday that he pulled off. He is unsure of how long the tick was on him. Also states concerned because his has Lyme disease after being bit by a tick that he states was also in their current residence. He denies any recent travel or camping. No fevers. No known sick contacts. No cough or congestion. Review of Systems Constitutional: reports: Myalgias. denies: Fever Nose: denies: Congestion Cardiac: denies: Chest pain / pressure Respiratory: denies: Dyspnea GI: denies: Abdominal Pain : denies: Dysuria Skin: denies: Rash PD PAST MEDICAL HISTORY - Past Medical History Past Medical History: No - Past Surgical History Past Surgical History: No General: Appendectomy Ortho: ACL reconstruction - Present Medications Home Medications: Ambulatory Orders Medication Instructions Recorded Confirmed No Known Home Medications 01/12/23 01/12/23 - Allergies Allergies/Adverse Reactions: Allergies Allergy/AdvReac Type Severity Reaction Status Date / Time No Known Drug Allergies Allergy Verified 08/26/23 13:21 - Social History Does the pt smoke?: No Smoking Status: Never smoker Does the pt have substance abuse?: No - Immunizations Immunizations are current?: No Immunizations: TDAP >10years/unknown PD ED PE NORMAL - General General: Alert and oriented X 3, No acute distress, Well developed/nourished - HEENT HEENT: Atraumatic, Moist mucous membranes, Pharynx benign - Neck Neck: Supple, no meningeal sign - Cardiac Cardiac: RRR, Strong equal pulses - Respiratory Respiratory: No respiratory distress, Clear bilaterally - Abdomen Abdomen: Non distended - Derm Derm: Warm and dry, Other (No rash to left inner thigh where tick was present, no swelling) - Extremities Extremities: No deformity - Neuro Neuro: Alert and oriented X 3, No motor deficit, Normal speech Results - Vitals Vitals: Vital Signs - 24 hr 08/26/23 08/26/23 13:19 16:01 Temperature 36.4 C L Heart Rate 91 74 Respiratory 16 16 Rate Blood Pressure 109/77 120/78 O2 Saturation 99 98 Oxygen O2 Source Room air - Labs Labs: Laboratory Tests 08/26/23 14:45 Nasal Adenovirus (PCR) NOT DETECTED Nasal B. parapertussis DNA (PCR) NOT DETECTED Nasal Coronavir 229E PCR NOT DETECTED Nasal Coronavir HKU1 PCR NOT DETECTED Nasal Coronavir NL63 PCR NOT DETECTED Nasal Coronavir OC43 PCR NOT DETECTED Nasal Enterovir/Rhinovir PCR NOT DETECTED Nasal Influenza B PCR NOT DETECTED Nasal Influenza A PCR NOT DETECTED Nasal Parainfluen 1 PCR NOT DETECTED Nasal Parainfluen 2 PCR NOT DETECTED Nasal Parainfluen 3 PCR NOT DETECTED Nasal Parainfluen 4 PCR NOT DETECTED Nasal RSV (PCR) NOT DETECTED Nasal B.pertussis DNA PCR NOT DETECTED Nasal C.pneumoniae (PCR) NOT DETECTED Bulmaro Human Metapneumo PCR NOT DETECTED Nasal M.pneumoniae (PCR) NOT DETECTED Nasal SARS-CoV-2 (PCR) NOT DETECTED PD Medical Decision Making - ED course ED course: Pt with body aches x 1 day. Tick exposure yesterday with unclear time on him. Pt aware that tick borne illnesses are not common for area but reports concern given has Lyme disease after tick exposure. Will give prophylaxis with 1 dose of doxycycline. VSS. Respiratory swab from triage is negative for tested viruses. Pt advised on concerning symptoms to return for. Departure - Departure Disposition: 01 Home, Self Care Clinical Impression: Body aches, Tick bite Condition: Stable Instructions: ED Facts Tick, ED Bite Tick Abx Tx Comments: You were given a single dose of doxycycline which is the recommended dose for prevention for any tickborne illnesses. We do not do routine testing for Lyme Disease and I would recommend close follow-up with your primary care doctor if your symptoms or not improving. Your respiratory swab was negative for the tested viruses. Return to the ER with any worsening symptoms such as development of a rash. Forms: PCP List Discharge Date/Time: 08/26/23 16:01
[2023-08-26] MEDS: DOXYCYCLINE 100 MG TABLET PO STA (15:59)
[2023-08-26 16:02] VITALS: BP 120/78; O2SAT 98
== END 2023-08-26 16:01 | disposition home or self-care (01) ==
LOC: ED 13:10
DX: T14.8XXA Other injury of unspecified body region, initial encounter (principal); W57.XXXA Bitten or stung by nonvenomous insect and other nonvenomous arthropods, initial encounter; M79.10 Myalgia, unspecified site
CPT/HCPCS: 87633; 99283; A9270

== ENCOUNTER 2023-10-02 20:51 | Emergency (ER) | payer OTHER ==
[2023-10-02 21:10] LABS: BILIRUBIN,URINE NEGATIVE (NEGATIVE); GLUCOSE, URINE (UA) NEGATIVE (NEGATIVE); KETONES,URINE (UA) NEGATIVE (NEGATIVE); LEUKOCYTE ESTERASE, URINE NEGATIVE (NEGATIVE); NITRITE,URINE NEGATIVE (NEGATIVE); OCCULT BLOOD,URINE NEGATIVE (NEGATIVE); PROTEIN,URINE NEGATIVE (NEGATIVE); UROBILINOGEN,URINE 0.2 (NORMAL) E.U./dL (NORMAL)
[2023-10-02 21:16] LABS: CLARITY,URINE CLEAR (CLEAR)
--- NOTE | 2023-10-02 21:23 | ED Physician Documentation ---
PD HPI ABD PAIN - Stated complaint Stated Complaint: ABD PX/FEVER - Chief complaint Chief Complaint: Abd Pain - History obtained from History obtained from: Patient - Additional information Additional information: HPI from patient. Patient complains of abdominal pain across upper abdomen, greatest in the epigastrium. Describes pain as a burning sensation and has been associate with nausea and vomiting. Denies diarrhea. The pain is worse with movement. This pain started at approximately 9 AM this morning without inciting event. There are no ameliorating factors. Tmax 100.4 earlier today. Denies history of similar symptoms. Past surgical history includes appendectomy. Denies hematemesis Review of Systems Constitutional: reports: Fever. denies: Chills, Myalgias, Sweats Cardiac: reports: Reviewed and negative Respiratory: reports: Reviewed and negative GI: reports: Abdominal Pain, Nausea, Vomiting. denies: Abdominal Swelling, Diarrhea, Hematemesis, Bloody / black stool : denies: Dysuria, Frequency PD PAST MEDICAL HISTORY - Past Medical History Past Medical History: No - Past Surgical History Past Surgical History: No General: Appendectomy Ortho: ACL reconstruction - Present Medications Home Medications: Ambulatory Orders Medication Instructions Recorded Confirmed No Known Home Medications 01/12/23 10/02/23 - Allergies Allergies/Adverse Reactions: Allergies Allergy/AdvReac Type Severity Reaction Status Date / Time No Known Drug Allergies Allergy Verified 10/02/23 20:59 - Social History Does the pt smoke?: No Smoking Status: Never smoker Does the pt have substance abuse?: No - Immunizations Immunizations are current?: No Immunizations: TDAP >10years/unknown PD ED PE NORMAL - Vitals Vital signs reviewed: Yes - General General: Alert and oriented X 3, No acute distress, Well developed/nourished - Cardiac Cardiac: RRR, No murmur - Respiratory Respiratory: No respiratory distress, Clear bilaterally - Abdomen Abdomen: Soft, Non distended - Back Back: No CVA TTP PD ED PE EXPANDED - Abdomen Abdomen: Tender to palpation (mild/moderate RUQ and epigastric TTP without guarding or rebound) Results - Vitals Vitals: Vital Signs - 24 hr 10/02/23 10/02/23 10/02/23 20:52 22:00 22:57 Temperature 36.6 C Heart Rate 82 68 68 Respiratory 16 16 16 Rate Blood Pressure 130/87 H 131/85 H 119/67 O2 Saturation 100 99 98 10/03/23 00:23 Temperature Heart Rate 50 L Respiratory 16 Rate Blood Pressure 99/57 L O2 Saturation 98 Oxygen O2 Source Room air - Labs Labs: Laboratory Tests 10/02/23 10/02/23 10/02/23 21:00 21:37 21:37 WBC 9.2 RBC 5.00 Hgb 14.2 Hct 43.0 MCV 86.0 MCH 28.4 MCHC 33.0 RDW 13.1 Plt Count 280 MPV 9.6 Neut # (Auto) 4.3 Lymph # (Auto) 3.9 H [place] # (Auto) 0.6 Eos # (Auto) 0.2 Baso # (Auto) 0.1 Absolute Nucleated RBC 0.00 Nucleated RBC % 0.0 Sodium 138 Potassium 3.5 Chloride 103 Carbon Dioxide 27 Anion Gap 8.0 BUN 13 Creatinine 1.1 Estimated GFR (MDRD) 78 L Glucose 88 Calcium 10.0 Total Bilirubin 0.7 AST 13 ALT 14 Alkaline Phosphatase 49 Total Protein 7.2 Albumin 4.6 Globulin 2.6 Albumin/Globulin Ratio 1.8 Lipase 13 Urine Color YELLOW Urine Clarity CLEAR Urine pH 6.0 Ur Specific [place] 1.020 Urine Protein NEGATIVE Urine Glucose (UA) NEGATIVE Urine Ketones NEGATIVE Urine Occult Blood NEGATIVE Urine Nitrite NEGATIVE Urine Bilirubin NEGATIVE Urine Urobilinogen 0.2 (NORMAL) Ur Leukocyte Esterase NEGATIVE Ur Microscopic Review NOT INDICATED Urine Culture Comments NOT INDICATED - Rads (name of study) CT A/P with IV contrast Relevant Findings:: Prelim report reviewed, See rad report PD Medical Decision Making - ED course Complexity details: reviewed results, re-evaluated patient, considered differential, d/w patient ED course: Unremarkable CBC, ER abdominal panel, and urinalysis. However, given the notable tenderness to palpation on exam, CT A/P with IV contrast undertaken to investigate possible infectious/inflammatory diagnoses such as diverticulitis. There are no concerning nor diagnostic findings on this study. Patient reports improvement after 1 L normal saline IV, 4 mg IV Zofran and 30 mg IV Toradol. Results discussed with patient, return precautions reviewed. The cause of patient's symptoms is not apparent at this time. I offered to prescribe ondansetron, but he says he still has this medication at home. Departure - Departure Disposition: 01 Home, Self Care Clinical Impression: Abdominal pain Qualifiers: Abdominal location: upper abdomen, unspecified Qualified Code(s): R10.10 - Upper abdominal pain, unspecified Condition: Good Instructions: ED Abdominal Pain Unkn Cause Male Comments: There were no concerning nor diagnostic findings on tonight's test, include urinalysis, blood test, and the CT scan of your abdomen and pelvis. The cause of your symptoms is not apparent at this time. Follow-up with your primary care provider in 2 to 3 days if the symptoms have not resolved by then. Return to the emergency department if your symptoms worsen in any way or if you develop new/concerning signs/symptoms (worsening abdominal pain, intractable vomiting and/or diarrhea, blood in the vomit and/or stool, recurrent/persistent fever). Discharge Date/Time: 10/03/23 00:25
[2023-10-02 21:42] LABS: BASOPHILS # (AUTO) 0.1 10^3/uL (0.0-0.1); BASOPHILS % (AUTO) 1.2 %; EOSINOPHILS # (AUTO) 0.2 10^3/uL (0.0-0.7); EOSINOPHILS % (AUTO) 2.5 %; HGB - HEMOGLOBIN 14.2 g/dL (14.0-18.0); LYMPHOCYTES # (AUTO) 3.9 10^3/uL (1.5-3.5); MEAN CORPUSCULAR HEMOGLOBIN 28.4 pg (27.0-31.0); MEAN PLATELET VOLUME 9.6 fL (7.4-11.4); MONOCYTES # (AUTO) 0.6 10^3/uL (0.0-1.0); MONOCYTES % (AUTO) 6.9 %; NEUTROPHILS # (AUTO) 4.3 10^3/uL (1.5-6.6); NEUTROPHILS % (AUTO) 47.2 %; PLT - PLATELET COUNT 280 10^3/uL (130-450); RED CELL DISTRIBUTION WIDTH 13.1 % (12.0-15.0); WHITE BLOOD COUNT 9.2 x10^3/uL (4.8-10.8)
[2023-10-02 22:00] LABS: ALBUMIN 4.6 g/dL (3.2-5.5); ALBUMIN/GLOBULIN RATIO 1.8 (1.0-2.2); BILIRUBIN,TOTAL 0.7 mg/dL (0.2-1.0); CREATININE 1.1 mg/dL (0.6-1.3); POTASSIUM 3.5 mmol/L (3.5-4.5); TOTAL PROTEIN 7.2 g/dL (6.4-8.9)
[2023-10-02] MEDS ORDERED: iohexoL-300 100 ML VIAL ONE (22:20)
[2023-10-02] MEDS: iohexoL-300 100 ML VIAL IVP ONE (22:48)
[2023-10-02] MEDS: ONDANSETRON 4 MG/2 ML VIAL IVP STA (22:53)
[2023-10-02] MEDS: KETOROLAC 30 MG/ML VIAL IVP STA (22:53)
[2023-10-02] MEDS: SODIUM CHLORIDE 0.9% 1,000 ML IV STA (22:54)
[2023-10-02 23:00] VITALS: O2SAT 98
--- NOTE | 2023-10-02 23:37 | CT Report ---
PROCEDURE: Abdomen/Pelvis W INDICATIONS: RUQ pain, TTP CONTRAST: Omni 300. 100mls TECHNIQUE: After the administration of intravenous contrast, a CT scan of the abdomen and pelvis was performed. Images were recorded and evaluated at appropriate window settings. Reformats: coronal and sagittal. F or radiation dose reduction, the following was used: automated exposure control, adjustment of mA and /or kV according to patient size. COMPARISON: None. FINDINGS: Image quality: Diagnostic. Lower chest: Unremarkable. Liver: No solid mass. Subcentimeter right lobe cyst. Gallbladder: No radiopaque stones or wall thickening. Biliary tree: No intrahepatic or extrahepatic dilation, accounting for age. Spleen: No splenomegaly. Pancreas: No pancreatic ductal dilation. Adrenals: No adrenal nodule. Kidneys and ureters: Symmetric enhancement. No hydronephrosis or nephrolithiasis. No solid mass or cy st requiring follow-up. No hydroureter. Stomach, bowel and peritoneum: Stomach and small bowel are normal. The appendix is absent. The colon is normal. No pathologic free fluid. No free intraperitoneal air. Lymph nodes: No central or retroperitoneal adenopathy. Vessels: Normal caliber abdominal aorta, IVC, and portal vein. Patent portal vein. PELVIS Reproductive organs: Unremarkable. Bladder: Decompressed. No retained stones. Pelvic lymph nodes: No pelvic adenopathy by size criteria. Bones: No aggressive osseous abnormality. Other: No significant ventral or inguinal hernia. IMPRESSION: No acute process. Reviewed by: Maritza King MD on 10/02/2023 11:35 PM PDT Approved by: Maritza King MD on 10/02/2023 11:35 PM PDT Station ID: [id number]
[2023-10-03 00:30] VITALS: BP 99/57
== END 2023-10-03 00:25 | disposition home or self-care (01) ==
LOC: ED 20:51
DX: R10.10 Upper abdominal pain, unspecified (principal)
CPT/HCPCS: 36415; 74177; 80053; 81003; 83690; 85025; 96374; 99284; Q9967; 81001; 87086